=== PATIENT | male | born 1960 | race Caucasian/White ===

== ENCOUNTER → 2020-06-18 | Outpatient (CLI) | payer BC ==
[~2020-06-18] MED LIST: AMLO-186 PO; ASPI325T8 PO; ATORVASTATIN CA80 MG PO; PANT40TA6 PO; PENT400T7 PO
== END ==
LOC: LAB 09:25
PROVIDERS: ATTEND Nurse Anesthetist, Certified Registered
DX: Z01.812 Encounter for preprocedural laboratory examination (principal); Z12.11 Encounter for screening for malignant neoplasm of colon; Z20.828 Contact with and (suspected) exposure to other viral communicable diseases
CPT/HCPCS: U0003

== ENCOUNTER → 2020-06-22 | Day surgery (SDC) | payer BC ==
[~2020-06-22] MED LIST changes: +IPRATRPIUM/ALBUTEROL 0.5/2.5MG 3 ML NEBU. NEB PRN; +IV RINGERS SOLUTION,LACTATED 1,000 ML IV SCH; +LIDOCAINE 2% PF 5 ML VIAL. ONE; +MIDAZOLAM HCL PF 2 MG/2 ML VIAL. IV ONE; +ONDANSETRON PF 4 MG/2 ML VIAL. IV PRN; +PROPOFOL 10,000 MCG/ML (20ML) VIAL IV ONE
[2020-06-22 08:43] VITALS: BP 137/76
--- NOTE | 2020-06-25 15:08 | PATHOLOGY ---
[facility] Accession Number: [id number] . 01 Material submitted: . PART A: colon - ASCENDING COLON POLYP. Modifiers: ascending PART B: rectum - RECTAL POLYP . 01 Clinical history: . SCREENING . 02 Diagnosis: A. Colon biopsies, ascending colon polyp: - Tubular adenoma. . B. Colorectal biopsy, rectal polyp: - Tubular adenoma. . ([facility]:mm; 06/25/2020) [facility] 06/25/2020 1207 Local . 02 Comment: There is no high grade dysplasia or evidence of malignancy. . ([facility]:mml; 06/25/2020) . 02 Electronically signed: . Eran Wolfe MD, Pathologist NPI- [id number] . 01 Gross description: . A. Received in formalin labeled "Sree Calvin Jr., ascending colon polyp" are multiple salas-brown soft tissue fragments measuring in aggregate 0.6 x 0.5 x 0.1 cm. The specimen is submitted entirely in A1. . B. Received in formalin labeled "Valerienis ., Sree, rectal polyp" is a fragment of salas-brown soft tissue measuring 0.4 x 0.3 x 0.2 cm. The specimen is submitted entirely in B1. ([facility] [place]; 06/24/2020) [facility] 06/24/2020 1142 Local . 02 Pathologist provided ICD-10: D12.2, D12.8 . 02 CPT . 064622, [id number] Specimen Comment: A courtesy copy of this report has been sent to [phone] Specimen Comment: [phone] Specimen Comment: Report sent to / DR YVETTE Performed at: [address] [facility] [address], [place], [place] [id number] MD William Aguayo MD Phone: [phone] Performed at: 02 [facility] [address] [place], [place] [id number] MD Eran Wolfe MD Phone: [phone]
== END | disposition home or self-care (01) ==
LOC: SURG 06:56
PROVIDERS: ATTEND Emergency Medicine
DX: Z08 Encounter for follow-up examination after completed treatment for malignant neoplasm (principal); D12.2 Benign neoplasm of ascending colon; D12.8 Benign neoplasm of rectum; K57.30 Diverticulosis of large intestine without perforation or abscess without bleeding; K63.89 Other specified diseases of intestine; I10 Essential (primary) hypertension; E78.00 Pure hypercholesterolemia, unspecified; K21.9 Gastro-esophageal reflux disease without esophagitis; I73.9 Peripheral vascular disease, unspecified; Z85.038 Personal history of other malignant neoplasm of large intestine; Z90.49 Acquired absence of other specified parts of digestive tract; Z79.899 Other long term (current) drug therapy; Z86.010 Personal history of colon polyps; Z79.82 Long term (current) use of aspirin; Z98.890 Other specified postprocedural states
CPT/HCPCS: 45380; J2001; J2704; J7120; 88305